=== PATIENT | female | born 1940 | race Caucasian/White ===

== ENCOUNTER 2019-06-24 10:55 | Emergency (ER) | payer MEDICARE, BC, SELFPAY ==
--- NOTE | ~2019-06-24 | XR_ITS ---
EXAMINATION: XR chest 2V DATE: 06/24/2019 11:46 INDICATION: Cough. TECHNIQUE: Frontal and lateral views of the chest were obtained. COMPARISON: Chest 2 views 05/31/2019 FINDINGS: Calcified left lung nodules are consistent with old granulomatous disease. No pleural effus ion or pneumothorax. The heart size is normal. IMPRESSION: 1. No acute cardiopulmonary disease. Reviewed, dictated and finalized at location A. NCT PROFESSOR OF ENGLISH
--- NOTE | 2019-06-24 10:59 | ED.GENADULT ---
HPI - General Adult General Chief complaint: Upper Respiratory Infection Stated complaint: cough/fever/fatigue Time Seen by Provider: 06/24/19 11:31 Source: patient Mode of arrival: ambulatory Limitations: no limitations History of Present Illness HPI narrative: 38-year-old female patient presents to the [facility] with complaints of cold symptoms for the past 10 days. Patient states that she did get a flu shot this year. Patient states that her biggest complaint today is that she feels very tired and fatigued. Patient states she has been taking vthb-hns-smysuny Coricidin for her symptoms but denies any ibuprofen or Tylenol. Patient states that she has had a little bit of a stuffy nose, a cough and has been short of breath at times the last weeks she thinks that she was wheezing. Patient states that she did have asthma when she was younger but has not had any issues with it for several years. Patient states that she is a former smoker and quit about 20 to 30 years ago. Patient denies any chest pain today. Denies any abdominal pain, nausea, vomiting or diarrhea. Related Data Home Medications Medication Instructions Recorded Confirmed atorvastatin 40 mg tablet 40 mg PO DAILY 05/31/19 06/24/19 hydrochlorothiazide 25 mg tablet 25 mg PO DAILY 05/31/19 06/24/19 lisinopril 10 mg tablet 10 mg PO DAILY 05/31/19 06/24/19 lorazepam 0.5 mg tablet 0.5 mg PO TID 05/31/19 06/24/19 paroxetine HCl 20 mg tablet 20 mg PO DAILY 05/31/19 06/24/19 venlafaxine 75 mg capsule,extended 75 mg PO BID cap 05/31/19 06/24/19 release 24 hr oxybutynin chloride 10 mg PO DAILY 06/24/19 06/24/19 Allergies Allergy/AdvReac Type Severity Reaction Status Date / Time No Known Allergies Allergy Verified 06/24/19 10:59 Review of Systems Review of Systems: Narrative: CONSTITUTIONAL: Denies fever, chills, or sweats. Positive fatigue EYES: Denies visual changes, redness, or discharge. ENT: Positive rhinorrhea, congestion, denies sore throat, or otalgia. CARDIOVASCULAR: Denies chest pain, palpitations, or edema. RESPIRATORY: Positive cough with dyspnea. GASTROINTESTINAL: Denies abdominal pain, nausea, vomiting, or diarrhea. GENITOURINARY: Denies dysuria or hematuria. SKIN: Denies rash or itching. MUSCULOSKELETAL: Denies back pain, joint pain, or myalgia. NEUROLOGIC: Denies headache, numbness, or weakness. PSYCHIATRIC: Denies anxiety or depression. ON LICENSE OF [facility] Social History Social History Smoking status: Never smoker Alcohol intake: current Gender identity (if verbalized by the patient): Female Comments At the time of my signature I agree with nursing past medical history, surgical, social, and family history. There is no relevant family history pertinent to the presenting complaint. Exam Narrative: Exam Narrative: GENERAL: Well-appearing, well-nourished, and in no acute distress. HEAD: Normocephalic, atraumatic. No tenderness noted to frontal and maxillary sinuses on palpation EYES: PERRLA and EOMI. ENT: Nares with erythema and edema noted bilaterally with the right nare swollen shut, no rhinorrhea or epistaxis. Mucous membranes moist. Posterior pharynx with no erythema, tonsillar margin, exudates or lesions present. Bilateral TMs are clear with no erythema or foreign bodies in the canal. NECK: Supple. No lymphadenopathy CHEST: Clear to auscultation. No respiratory distress. Patient able talk in clear complete sentences. No tripoding noted. HEART: Regular rate and rhythm. No murmur heard. Normal peripheral pulses. ABDOMEN: Soft, nontender, nondistended, normal active bowel sounds. EXTREMITIES: Normal range of motion. No edema. SKIN: Warm, dry, no rash. NEURO: No focal deficits. Alert and oriented x3. Course Reevaluation(s) Reevaluation #1: Notify patient that her x-ray is negative for any pneumonia today. Discussed with patient that most likely she probably did have some type of influenza virus
[2019-06-24 11:07] VITALS: BP 126/97; PULSE 62; RESP 18; TEMP 36.7; O2SAT 97
== END 2019-06-24 11:58 | disposition home or self-care (01) ==
PROVIDERS: Emergency Provider Nurse Practitioner Family; PCP Internal Medicine
DX: J06.9 Acute upper respiratory infection, unspecified (principal); E78.00 Pure hypercholesterolemia, unspecified; I10 Essential (primary) hypertension; K21.9 Gastro-esophageal reflux disease without esophagitis; M19.90 Unspecified osteoarthritis, unspecified site; F41.9 Anxiety disorder, unspecified
CPT/HCPCS: 71046; 99213; G0463

== ENCOUNTER → 2020-12-25 09:58 | Outpatient (CLI) | payer MEDICARE, BC, SELFPAY ==
--- NOTE | ~2020-12-25 | XR_ITS ---
EXAMINATION: XR shoulder RT min 2V INDICATION: Right shoulder pain TECHNIQUE: Four views of the right shoulder are submitted. COMPARISON: None FINDINGS: Normal alignment. No fracture. There is mild osteoarthritis of the glenohumeral and acromio clavicular joints. Soft tissues are unremarkable. IMPRESSION: 1. Mild osteoarthritis without acute osseous abnormality. Reviewed, dictated and finalized at location A.
== END ==
PROVIDERS: PCP Internal Medicine; Visit Provider Nurse Practitioner
DX: M19.011 Primary osteoarthritis, right shoulder (principal)
CPT/HCPCS: 73030

== ENCOUNTER 2020-12-25 10:59 | Outpatient (CLI) | payer MEDICARE, BC, SELFPAY ==
--- NOTE | 2020-12-25 | ECG_ITS ---
Measurements Intervals [place] Rate: 66 P: 54 LA: 167 QRS: -59 QRSD: 158 T: 75 QT: 428 QTc: 449 Interpretive Statements SINUS RHYTHM LEFT AXIS DEVIATION LEFT BUNDLE BRANCH BLOCK BASELINE ARTIFACT- I, II, III, AVR, AVL, AVF ABNORMAL ECG Electronically Signed On 12-25-2020 11:25:22 CDT by Yoel Mena D.O.
== END 2020-12-25 11:00 | disposition home or self-care (01) ==
LOC: ANHCARD 11:03
PROVIDERS: PCP Internal Medicine; Visit Provider Nurse Practitioner
DX: I10 Essential (primary) hypertension (principal); I44.7 Left bundle-branch block, unspecified
CPT/HCPCS: 93005

== ENCOUNTER 2021-01-16 14:09 | Outpatient (CLI) | payer MEDICARE, BC, SELFPAY ==
--- NOTE | ~2021-01-16 | US_ITS ---
EXAMINATION: US soft tissue head and neck DATE: 01/16/2021 14:58 INDICATION: Right neck mass. TECHNIQUE: Multiple grayscale and Doppler ultrasound images of the neck were obtained. COMPARISON: None FINDINGS: There is no abnormal mass or lymphadenopathy in the patient's area of concern in right neck . IMPRESSION: 1. No abnormal mass or lymphadenopathy in the patient's area of concern in right neck. Reviewed, dictated and finalized at location A. IMPRESSION: 1. No abnormal mass or lymphadenopathy in the patient's area of concern in righ t neck.
== END 2021-01-16 14:10 | disposition home or self-care (01) ==
PROVIDERS: PCP Internal Medicine; Visit Provider Nurse Practitioner
DX: R22.1 Localized swelling, mass and lump, neck (principal)
CPT/HCPCS: 76536

== ENCOUNTER 2021-03-04 08:42 | Outpatient (CLI) | payer MEDICARE, BC, SELFPAY ==
--- NOTE | ~2021-03-04 | DEXA_ITS ---
Bone Density Report Name: Chanell Collado Age: 80 Sex: Female Ethnicity: White Date of : 1940 Indication: postmenopausal; height loss; hysterectomy; Referring Provider: Mallory Garza Study: Bone densitometry was performed. Exam Date: March 04, 2021 Accession number: [id number] Bone Density: Region BMD T-score Z-score Classification AP Spine (L1-L4) 1.030 -0.2 2.4 Normal Femoral Neck (Left) 0.753 -0.9 1.4 Normal Total Hip (Left) 0.882 -0.5 1.5 Normal Total Hip Bilateral Avg 0.862 -0.7 1.3 Normal Femoral Neck (Right) 0.780 -0.6 1.6 Normal Total Hip (Right) 0.841 -0.8 1.1 Normal World Health Organization criteria for BMD impression classify patients as: Normal (T-score at or above -1.0), Osteopenia (T-score between -1.0 and -2.5), or Osteoporosis (T-score at or below -2.5). 10-year Fracture Risk: FRAX not reported because: All T-scores for Spine Total, Hip Total, Femoral Neck at or above -1.0 Clinical Information Provided by Patient: Has used the following medications: Calcium Has the following medical conditions: Hysterectomy Patient maximum height was 62 Menopause Age: 52 No regular weight bearing exercise Onset of menses at age 14 Number of children 2 Impression: The patient has normal bone mass. Discussion: BONE DENSITY IS ABOVE THE MINIMUM DESIRABLE LEVEL AT ALL SKELETAL SITES TESTED. This patient?s bone mineral density is above the minimum desirable level (T-score -1.0 or better) at all sites measured. The patient should follow a healthful lifestyle (good nutrition with adequate calcium and vitamin D, and appropriate weight-bearing exercise). Follow-Up: Consider repeating this study in 5 years or sooner if there is some new clinical indication. Reported by: VICKY on 03/04/2021 9:16:00 AM. Reviewed, dictated and finalized at location AShy AMANDA
--- NOTE | ~2021-03-04 | MM_ITS ---
EXAMINATION: MM screening marleen BI w jeremy HISTORY: Screening TECHNIQUE: Craniocaudal and mediolateral oblique 3-D tomosynthesis images were obtained and synthetic 2-D images were generated. CAD analysis was submitted and interpreted. COMPARISON: Comparison to multiple prior studies sequentially, with oldest reviewed study dated 02/10. BREAST PARENCHYMAL COMPOSITION: There are scattered areas of fibroglandular density. FINDINGS: Stable asymmetry lower inner quadrant of the left breast. There is no evidence of suspiciou s mass, calcification, or architectural distortion to suggest malignancy in either breast. There has been no suspicious interval change. IMPRESSION: 1. No mammographic evidence of malignancy. 2. Recommend routine screening mammography in one year. BI-RADS Category 1: Negative Reviewed, dictated and finalized at location A.
== END 2021-03-04 08:43 | disposition home or self-care (01) ==
LOC: ANHIMG 08:46
PROVIDERS: PCP Internal Medicine; Visit Provider Nurse Practitioner
DX: Z12.31 Encounter for screening mammogram for malignant neoplasm of breast (principal); Z78.0 Asymptomatic menopausal state
CPT/HCPCS: 77063; 77067; 77080

== ENCOUNTER 2023-01-12 14:15 | Outpatient (RCR) | payer MEDICARE, BC, SELFPAY ==
--- NOTE | 2022-12-09 13:36 | OPREHPOC ---
Outpatient Therapy Plan of Care This is a Multidisciplinary Plan of Care that may contain components documented by all disciplines (PT, OT, and ST.) PT Problem 1 PT Problem #1 Knowledge Deficit PT Goal 1 Goal 1* pt indep with HEP PT Problem 2 PT Problem #2 Impaired Strength PT Goal 1 Goal pt perform with good stability, 20 reps: 1* R supine SLR 2* L supine SLR 3* bridge 4* R side lying hip abduction to 10' 5* L side lying hip abduction to 5' single leg standing 8 seconds 6* R 7* L 8* sitting L ankle DF to 0' x 20 9* sitting L ankle circles with good control PT Problem 3 PT Problem #3 Impaired Functional Mobil PT Goal 1 Goal 1* Farfan balance score of 54/56 2* 5 reps sit/stand time of 17 seconds, without use of UE 3* 2 minute walking test distance of 460' 4* on 4 steps with 1 hand railing, pt not report any issues/concerns with 5* pt report NO falls 6* pt report able to walk her dog on a leash short distance without any issues
--- NOTE | 2022-12-09 13:36 | PTOPEVAL1 ---
Assessment and note entered by Eri Cortez, PT Evaluation Information Assessment Status Evaluation Diagnosis weakness/ decreased balance Onset past year Subjective Information gradual increase in weakness; in the past 6 months have had 2 falls--going down step/curb and on a ladder; does not do any exercises for legs or balance; does not like steps--avoids them due to fear of falling on steps; ACTIVITY: live alone; is able to perform all home and self care tasks; local daughters can help PRN if she needs help; is not able to walk her dog due to her dog pulling on the leash; with shopping , hips hurt with walking 2-3 minutes; GOAL: want to be able to walk straight and have balance back; be able to walk her dog; Reported Pain Level Pain Score Self Report Additional Pain Score Comments in the past week: 0-3/10, R anterior ankle and lower leg-- hurts, sore; foot numb and tingle Assessment PT Clinical Summary Rosy has the diagnosis of weakness, decreased balance. She lives alone and is able to be indep with in home and self care tasks. She has had 2 falls in the past 6 monts and has a fear of falling and avoids stairs. During the activities of the evaluation, she reported L knee and bilateral hip pain. With the evaluation: she has weakness of L > R LE, with decreased L ankle DF and toe catch; unable to single leg stand on R or L LE; Farfan balance score of 46/56, 2 minute walking test distance of 420', with reports of increase hip pain; 5 reps sit/stand time of 20 seconds, with use of UE's; Skilled PT services are indicated for therapeutic exercises and activities to increase LE and trunk strength, gait and balance skills, to improve mobility and decrease risk for future falls. Education for home exercises and safety with mobility. Plan of Care Interventions Gait Training,Neuro Re-education,Patient Education,Therapeutic Activities,Therapeutic Exercise PT Services Indicated Yes Treatment Frequency and 2x/wk for 4 weeks Duration Thes
--- NOTE | 2023-01-07 11:54 | PCPTNOTE ---
pt called and canceled due to ill;
--- NOTE | 2023-01-12 15:03 | PTOPDC ---
Assessment and note entered by Eri Cortez, PT Evaluation Information Assessment Status Discharge Diagnosis weakness/ decreased balance Onset past year Subjective Information have more confidence with my walking, stronger and doing better; do not have to have help anymore with going up a curb and walked in store without using the cart; no falls; have not tried walking her dog due to it being too hot outside; still gets SOB and tired with doing things, not regained her energy since having COVID. Is ready to finish with therapy. Reported Pain Level Pain Score 0: Self Report Assessment PT Clinical Summary Rosy has received 7 therapy sessions. Compared to the initial evaluation: she has improved in all areas: strength of trunk and hips Farfan balance score from to 46 to 52/56; 5 reps sit/stand time is the same, but does not use her hands; 2 minute walking test distance is 40' more at 460'; improved ability on stairs, with more reported confidence with walking --has been going out into the community more and has not had any falls. Education completed for HEP and safety with mobility. The goals were partially met. Discharge PT services, and she is to continue with her HEP and increase activity as tolerated. Discharge from PT services. Plan of Care PT Services Indicated No
== END 2023-01-14 13:53 | disposition home or self-care (01) ==
LOC: ANHPT 14:15
PROVIDERS: PCP Family Medicine; Visit Provider Family Medicine
DX: R29.898 Other symptoms and signs involving the musculoskeletal system (principal); R20.2 Paresthesia of skin; I12.9 Hypertensive chronic kidney disease with stage 1 through stage 4 chronic kidney disease, or unspecified chronic kidney disease; N18.30 Chronic kidney disease, stage 3 unspecified; N39.46 Mixed incontinence; E78.5 Hyperlipidemia, unspecified; E55.9 Vitamin D deficiency, unspecified; F41.9 Anxiety disorder, unspecified; F32.9 Major depressive disorder, single episode, unspecified
CPT/HCPCS: 97110; 97161; 97530; 99199

== ENCOUNTER 2023-09-23 12:46 | Outpatient (CLI) | payer MEDICARE, BC, SELFPAY ==
--- NOTE | ~2023-09-23 | XR_ITS ---
Clinical Indication: Fever PA and lateral views of the chest: Comparison: 06/24/2019 Findings: Stable calcified left basilar granuloma. The lungs are oh otherwise clear, without evidence of focal consolidation or pleural effusion. Cardiomediastinal silhouette is within normal limits. B ones and soft tissues are unremarkable. Impression: No acute abnormality. Reviewed, dictated and finalized at location . Impression: No acute abnormality.
== END 2023-09-23 12:47 ==
LOC: MICIMG 12:48
PROVIDERS: PCP Family Medicine; Visit Provider Nurse Practitioner Family
DX: R50.9 Fever, unspecified (principal)
CPT/HCPCS: 71046

== ENCOUNTER 2023-12-20 12:11 | Outpatient (CLI) | payer MEDICARE, BC, SELFPAY ==
--- NOTE | ~2023-12-20 | XR_ITS ---
[id number] Ordering provider: Bronson Cowan MD History: . M54.10 - Radiculopathy, site unspecified . Comparison: None. FINDINGS: VERTEBRAL BODIES: Normal height and alignment. No visible fracture or subluxation. The dens is intact . Fusion is seen at the level of C5-C6. DISK SPACES: Narrowing of the disc C4-C5, C5-C6 and C6-C7. Multilevel facet joint disease. Multilevel Uncovertebral joint osteoarthritic changes PARASPINOUS SOFT TISSUES: No prevertebral soft tissue swelling. IMPRESSION: No acute osseous abnormality cervical spine. Multilevel degenerative disc disease. Reviewed, dictated and finalized at location A.
== END 2023-12-20 12:12 ==
LOC: MICIMG 12:13
PROVIDERS: PCP Family Medicine; Visit Provider Family Medicine
DX: M43.22 Fusion of spine, cervical region (principal); M50.321 Other cervical disc degeneration at C4-C5 level; M50.322 Other cervical disc degeneration at C5-C6 level; M50.323 Other cervical disc degeneration at C6-C7 level
CPT/HCPCS: 72040

== ENCOUNTER 2023-12-28 14:49 | Outpatient (CLI) | payer MEDICARE, BC, SELFPAY ==
--- NOTE | ~2023-12-28 | MR_ITS ---
MRI of the cervical spine Clinical History: Radiculopathy Technique: Axial T2-weighted and gradient images, and sagittal T1-weighted, T2-weighted, and STIR joey ges were acquired. Findings: There is no fracture or subluxation of the cervical spine. There is straightening of the no rmal cervical lordosis. There are reactive marrow changes about the C4-C5 disc space. At C2-C3, there is no disc bulge or herniation. No spinal canal stenosis, cord compression or neural foraminal narrowing. At C3-C4, there is no disc bulge or herniation. No spinal canal stenosis, cord compression, or neural foraminal narrowing. There is bilateral facet arthropathy. At C4-C5, there is advanced degenerative disc narrowing. There is disc osteophyte complex with mild c anal stenosis and mild cord compression ventrally. Probable mild left neural foraminal narrowing. Rig ht neural foramen preserved. There is fusion across the C5-C6 disc space. No spinal canal stenosis, cord compression, or neural fo raminal narrowing. At C6-C7, there is advanced degenerative disc narrowing. No significant disc bulge or herniation. No spinal canal stenosis or cord compression, or neural foraminal narrowing. No abnormal signal seen in the spinal cord. Paravertebral soft tissues are unremarkable. Impression: Advanced degenerative spondylosis at C4-C5, as detailed above, with mild canal stenosis and cord comp ression at this level. Additional degenerative changes, as above. Reviewed, dictated and finalized at [facility]. Impression: Advanced degenerative spondylosis at C4-C5, as detailed above, with mild canal stenosis and cord compression at this level. Additional degenerative changes, as above.
== END 2023-12-28 14:50 ==
LOC: MICIMG 14:49
PROVIDERS: PCP Family Medicine; Visit Provider Family Medicine
DX: M47.22 Other spondylosis with radiculopathy, cervical region (principal); M50.30 Other cervical disc degeneration, unspecified cervical region
CPT/HCPCS: 72141

== ENCOUNTER 2024-08-24 15:18 | Outpatient (CLI) | payer MEDICARE, BC, SELFPAY ==
--- NOTE | ~2024-08-24 | XR_ITS ---
XR knee RT 3V 08/24/2024 15:34 Indication: Right knee pain Procedure: 3 views right knee Comparison: No prior studies for comparison. Findings: Moderate-severe tricompartment osteoarthritis of the right knee. No fracture or traumatic m alalignment. No significant joint effusion. No foreign bodies. Impression: 1: Moderate-severe tricompartment osteoarthritis of the right knee. Reviewed, dictated and finalized at location A. Impression: 1: Moderate-severe tricompartment osteoarthritis of the right knee.
== END 2024-08-24 15:19 | disposition home or self-care (01) ==
LOC: MICIMG 15:20
PROVIDERS: PCP Family Medicine; Visit Provider Family Medicine
DX: M17.11 Unilateral primary osteoarthritis, right knee (principal)
CPT/HCPCS: 73562

== ENCOUNTER 2025-01-16 12:20 | Outpatient (CLI) | payer MEDICARE, BC, SELFPAY ==
--- OUTSIDE RECORDS SUMMARY | 2025-01-16 12:23 | XMS_ITS | Clinical Summary ---
Author Organization [facility] Address [address] [place] [place] [address] Care Team Providers Care Brusher Tender Name Role Phone Unavailable Primary Care Provider Unavailabl e Source Comments [facility] [employer],non-owned Affiliates and Associated Physician Practices is amultiple site organization consisting of ambulatory clinics and hospital sitesin [place], [place], [place] and [place]. This disclosure is being madepursuant to the Care Everywhere program and may not contain all information available regarding this patient. 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 Gender Identity Not on file Sexual Orientation Not on file Plan of Treatment Health Maintenance Due Date Last Done Comments BONE DENSITY TESTING 1940 DTAP/TDAP/TD VACCINES (1 - Tdap) 1961 PNEUMOCOCCAL VACCINE 50+ (1 of 1 - PCV) 1992 ZOSTER VACCINE (1 of 2) 1992 Respiratory Syncytial Virus (RSV) Vaccine Pt: or over 60 yrs (1 - 1-dose 75+ series) 2017 COVID-19 VACCINE ( - 2023-2 5 season) 2024 DEPRESSION SCREENING 05/24/2024 INFLUENZA VACCINE (#1) 2025 HEPATITIS B VACCINE Aged Out No longe r eligible based on patient's age to complete this topic HIB VACCINE Aged Out No longer eligi ble based on patient's age to complete this topic HPV VACCINE Aged Out No longer eligi ble based on patient's age to complete this topic MENINGOCOCCAL (Group B) VACC INE SHARED DECISION-MAKING Aged Out No longer eligibl e based on patient's age to complete this topic MENINGOCOCCAL GROUPS A/C/Y/W VACCINE Aged Out No longer eligible b ased on patient's age to complete this topic
--- NOTE | 2025-01-16 13:00 | NEURO_ITS ---
Impression: # Complains of left lower extremity discomfort # Mild posterior tibial neuropathy. # Needle/EMG exam reveals neurogenic changes. # Clinical correlation recommended. Nerve Conduction Studies ?Stim Site NR Peak (ms) P-T Amp (?V) Site1 Site2 Delta-P (ms) Dist (cm) Vaibhav (m/s) Left Sup Fibular Anti Sensory (Ant Lat Mall) 14 cm ? 3.1 8.8 14 cm Ant Lat Mall 2.5 16.0 52 Left Sural Anti Sensory (Lat Mall) Calf ? 3.7 3.7 Calf Lat Mall 3.7 16.0 43 ?Stim Site NR Onset (ms) O-P Amp (mV) Site1 Site2 Delta-0 (ms) Dist (cm) Vaibhav (m/s) Left Peroneal Motor (Vastus Med) Ankle ? 4.1 1.8 Popit Ankle 7.6 39.0 51 Popit ? 11.2 0.8 Left Tibial Motor (Abd Camilo Brev) Ankle ? 4.1 1.1 Knee Ankle 8.0 40.0 45 Knee ? 13.4 1.4 F Wave Studies ?NR F-Lat (ms) L-R F-Lat (ms) Left Peroneal (Mrkrs) (EDB) ? 47.96 Left Tibial (Mrkrs) (Abd Hallucis) ? 50.04 Electromyography ?Side Muscle Nerve Root Ins Act Fibs Amp Dur Recrt Comment Left AntTibialis Dp Br Fibular L4-5 Nml Nml Nml >12ms Nml Left Gastroc Tibial S1-2 Nml Nml Nml Nml Nml Left Fibularis Long Sup Br Fibular L5-S1 Nml Nml Nml >12ms Nml Left Flex Dig Long Tibial L5-S2 Nml Nml Nml Nml Nml Left Ext Dig Brev Dp Br Fibular L5, S1 Nml Nml Nml >12ms Nml Left QuadratusFem QuadFemoris L4-5, S1 Nml Nml Nml >12ms Nml
== END 2025-01-16 12:21 | disposition home or self-care (01) ==
PROVIDERS: PCP Family Medicine; Visit Provider Nurse Practitioner Family
DX: G62.89 Other specified polyneuropathies (principal)
CPT/HCPCS: 95886; 95908

== ENCOUNTER 2025-03-19 09:24 | Outpatient (CLI) | payer MEDICARE, BC, SELFPAY ==
--- NOTE | 2025-03-19 | ECG_ITS ---
Test Date: 2025-03-19 09:51:15 Measurements Intervals [place] Rate: 81 P: 46 WV: 184 QRS: -52 QRSD: 156 T: 96 QT: 393 QTc: 459 Interpretive Statements SINUS RHYTHM LEFT AXIS DEVIATION LEFT BUNDLE BRANCH BLOCK BASELINE ARTIFACT- I, II, III, AVR, AVL, AVF ABNORMAL ECG No previous ECG available for comparison Electronically Signed On 03-19-2025 09:59:49 CDT by Yoel Mena D.O.
--- OUTSIDE RECORDS SUMMARY | 2025-03-19 10:21 | XMS_ITS | Clinical Summary ---
Author Organization [facility] Address [address] [place] [address] Care Team Providers Care Night Court Magistrate Name Role Phone Unavailable Primary Care Provider Unavailabl e Source Comments [facility] [employer]non-owned Affiliates and Associated Physician Practices is amultiple site organization consisting of ambulatory clinics and hospital sitesin [place], [place], [place] and [place]. This disclosure is being madepursuant to the Care Everywhere program and may not contain all information available regarding this patient. Last updated 18.[facility] [employer] 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
[2025-03-19 10:23] LABS: Anion Gap 5 mmol/L (4-12); Blood Urea Nitrogen 32 mg/dL (7-17); Calcium 9.8 mg/dL (8.4-10.2); Carbon Dioxide 31 mmol/L (22-30); Chloride 102 mmol/L (98-107); Estimated Glomerular Filt Rate 46; Glucose 72 mg/dL (65-110); Potassium 3.9 mmol/L (3.4-5.0); Sodium 138 mmol/L (137-145)
== END 2025-03-19 09:25 | disposition home or self-care (01) ==
LOC: ANHLAB 09:31
PROVIDERS: PCP Family Medicine; Visit Provider Nurse Anesthetist, Certified Registered
DX: Z01.818 Encounter for other preprocedural examination (principal); R94.31 Abnormal electrocardiogram [ECG] [EKG]; I10 Essential (primary) hypertension
CPT/HCPCS: 36415; 80048; 93005